=== PATIENT | male | born 1985 | race Caucasian/White ===

== ENCOUNTER 2016-06-04 23:59 | Emergency (ER) | payer OTHER ==
--- NOTE | ~2016-06-04 | CR181 ---
[facility] A Service of [facility] & [facility] RADIOLOGY TEXT RESULTS PATIENT: VERA CHAVIRA LOCATION: [facility] : 83 UNIT #: [id number] AGE: [address]: Tamanna Montoya APRN SEX: M ORDER DR: [id number] [facility] [address] [place], [place] [address] [id number] E MR#: [id number] Acc #: [id number] NAME: VERA CHAVIRA : 1985 SEX: M STUDY DATE/TIME: 06/05/2016 0:15 UNIT: [facility] ROOM: STUDY DESCRIPTION: CR Lumbar Spine 2 or 3 Views Attending Physician: Tamanna Montoya A.P.R.N. Ordering Physician: Tamanna Montoya A.P.R.N. Primary Care Physician: Primary Care Physician No MEDICAL IMAGING REPORT This report is preliminary unless electronic signature is present EXAM Lumbar spine, 06/05/2016 HISTORY 31-year-old male in the ED complaining of 2-week history of low back pain and left leg pain after a reported injury while wrestling. TECHNIQUE Three-view lumbar spine series. FINDINGS The examination is negative. No acute or chronic fracture deformity. Lumbar vertebrae, disc spaces and vertebral alignment are within normal limits. IMPRESSION Negative lumbar spine series. Dictated by... Karsten Sutton M.D. THIS IS AN ELECTRONICALLY VERIFIED REPORT Karsten Sutton M.D. at 06/05/2016 9:58 PM Sheron TD: 06/05/2016 12:05 JOB #: [id number] MEDICAL IMAGING REPORT COPY
[~2016-06-04 23:59] MED LIST: ALPRAZOLAM PO; HYDROCODONE-APA1 T30 PO; PENICILLIN PO
== END 2016-06-05 00:50 | disposition home or self-care (01) ==
LOC: CFTX 23:59
DX: M54.42 Lumbago with sciatica, left side (principal); F17.210 Nicotine dependence, cigarettes, uncomplicated
CPT/HCPCS: 72100; 96372; 99283; J1885

== ENCOUNTER 2016-08-09 12:30 | Emergency (ER) | payer OTHER ==
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
== END 2016-08-09 15:45 | disposition home or self-care (01) ==
LOC: CED 12:30
DX: S06.0X1A Concussion with loss of consciousness of 30 minutes or less, initial encounter (principal); F41.9 Anxiety disorder, unspecified; F32.9 Major depressive disorder, single episode, unspecified; F17.210 Nicotine dependence, cigarettes, uncomplicated; W01.198A Fall on same level from slipping, tripping and stumbling with subsequent striking against other object, initial encounter; Y92.009 Unspecified place in unspecified non-institutional (private) residence as the place of occurrence of the external cause
CPT/HCPCS: 70450; 72040; 99284

== ENCOUNTER 2016-08-15 23:44 | Emergency (ER) | payer OTHER ==
--- NOTE | ~2016-08-15 | CT23 ---
[facility] A Service of [facility] & [facility] RADIOLOGY TEXT RESULTS PATIENT: VERA CHAVIRA LOCATION: [facility] : 84 UNIT #: [id number] AGE: [address]: Kristofer Mustafa MD SEX: M ORDER DR: [id number] [place] [id number] [facility]. [place], [place] [address] [id number] E MR#: [id number] Acc #: [id number] NAME: VERA CHAVIRA : 1985 SEX: M STUDY DATE/TIME: 08/16/2016 3:24 UNIT: [facility] ROOM: STUDY DESCRIPTION: CT Angio Neck Attending Physician: Kristofer Mustafa M.D. Ordering Physician: Dagoberto Kwok Aprn MEDICAL IMAGING REPORT This report is preliminary unless electronic signature is present EXAM CTA head and neck HISTORY Refer below. FINDINGS Please refer to the CTA head report on the same date for complete details. Dictated by... Antione Myers M.D. THIS IS AN ELECTRONICALLY VERIFIED REPORT Antione Myers M.D. at 09/15/2016 5:37 PM TEV/pcl TD: 09/11/2016 20:43 JOB #: [id number] MEDICAL IMAGING REPORT Page 1 of 1 COPY
--- NOTE | ~2016-08-15 | CT71 ---
[facility] A Service [facility] RADIOLOGY TEXT RESULTS PATIENT: VERA CHAVIRA LOCATION: [facility] : 84 UNIT #: [id number] AGE: [address]: Kristofer Mustafa MD SEX: M ORDER DR: [id number] [place] [place], [place] [address] [id number] E MR#: [id number] Acc #: [id number] NAME: VERA CHAVIRA. : 1985 SEX: M STUDY DATE/TIME: 08/16/2016 3:13 UNIT: [facility] ROOM: STUDY DESCRIPTION: CT Head Wo Contrast Attending Physician: Kristofer Mustafa M.D. Ordering Physician: Dagoberto Kwok Aprn Primary Care Physician: Primary Care Physician No MEDICAL IMAGING REPORT This report is preliminary unless electronic signature is present EXAM CT head without contrast INDICATION Nausea, vomiting, right-sided head and neck pain after a fall 1 week ago. PROCEDURE Unenhanced CT head. This CT exam was performed with one or more of the following radiation dose reduction techniques: automatic exposure control, adjustment of mA and/or kV according to patient size, and iterative reconstruction. COMPARISON 08/09/2016 FINDINGS No acute hemorrhage, abnormal mass effect, extraaxial collection or hydrocephalus. No depressed calvarial fracture. Paranasal sinuses and mastoid air cells are clear. IMPRESSION No acute intracranial findings. Dictated by... Merritt Gross M.D. THIS IS AN ELECTRONICALLY VERIFIED REPORT Merritt Gross M.D. at 08/16/2016 10:10 PM Yoanna TD: 08/16/2016 09:51 JOB #: [id number] [facility] A Service [facility] RADIOLOGY TEXT RESULTS PATIENT: VERA CHAVIRA LOCATION: [facility] : 84 UNIT #: [id number] AGE: [address]: Kristofer Mustafa MD SEX: M ORDER DR: MEDICAL IMAGING REPORT Page 1 of 1 COPY
--- NOTE | ~2016-08-15 | CT17 ---
[facility] A Service of [facility] RADIOLOGY TEXT RESULTS PATIENT: VERA CHAVIRA LOCATION: [facility] : 84 UNIT #: [id number] AGE: [address]: Kristofer Mustafa MD SEX: M ORDER DR: [id number] [facility] [address] [place], [place] [address] [id number] E MR#: [id number] Acc #: [id number] NAME: VERA CHAVIRA : 1985 SEX: M STUDY DATE/TIME: 08/16/2016 3:24 UNIT: [facility] ROOM: STUDY DESCRIPTION: CT Angio Head Attending Physician: Kristofer Mustafa M.D. Ordering Physician: Dagoberto Kwok Aprn MEDICAL IMAGING REPORT This report is preliminary unless electronic signature is present EXAM Head and neck CT angiogram with contrast, 08/16/2016 TECHNIQUE Axial contrast enhanced head and neck CT angiogram with 3-D reformats. This CT exam was performed with one or more of the following radiation dose reduction techniques: automatic exposure control, adjustment of mA and/or kV according to patient size, and iterative reconstruction. HISTORY Nausea. Vomiting. Right-sided neck pain for 1 week. Study was performed on August 16 and initial wet reading was provided at that time, has been returned to the cue for final dictation. Reason for the lack of final dictation is not provided. FINDINGS There is a bovine-type arch branching pattern without proximal great vessel stenosis. Both cervical common and internal and external carotid and vertebral arteries are widely patent. The carotid bifurcations are normal with no stenosis by NASCET criteria or other criteria. Intracranially, there is no aneurysm or flow-limiting stenosis. There is symmetric vascularity in the anterior, middle and posterior cerebellar distributions, though opacification intracranial circulation is suboptimal. There is no intracranial mass or abnormal enhancement and the dural venous sinuses are normal. The cervical soft tissues are remarkable for some mildly prominent but symmetric-appearing cervical lymph nodes of uncertain significance. IMPRESSION [facility] A Service of [facility] RADIOLOGY TEXT RESULTS PATIENT: VERA CHAVIRA LOCATION: [facility] : 84 UNIT #: [id number] AGE: [address]: Kristofer Mustafa MD SEX: M ORDER DR: 1. Mildly prominent cervical lymphadenopathy but otherwise normal head and neck CT angiogram. No intracranial or extracranial aneurysm or stenosis. There is dental and periodontal disease but incompletely evaluated here. Dictated by... Antione Myers M.D. THIS IS AN ELECTRONICALLY VERIFIED REPORT Antione Myers M.D. at 09/15/2016 5:38 PM TEV/pcl TD: 09/11/2016 20:25 JOB #: [id number] MEDICAL IMAGING REPORT Page 1 of 1 COPY
[2016-08-16 02:20] LABS: BASOPHIL# 0.1 X10e3 (0-0.3); BASOPHIL% 1.3 % (0-2.5); EOSINOPHIL# 0.2 X10e3 (0-0.7); EOSINOPHIL% 2.6 % (0.0-7.0); HEMATOCRIT 43.6 % (38.0-50.0); HEMOGLOBIN 14.4 gm/dL (13.0-16.0); LYMPHOCYTE# 2.7 X10e3 (1.0-3.5); LYMPHOCYTE% 31.9 % (17.0-45.0); MEAN CELL VOLUME 92.8 FL (83-96); MEAN CORPUSCULAR HEMOGLOBIN 30.6 PG (28-34); MEAN PLATELET VOLUME 9.5 FL (6.5-11.5); MONOCYTE# 0.7 X10e3 (0-1.0); MONOCYTE% 8.5 % (3.0-12.0); NEUTROPHIL# 4.7 X10e3 (1.5-7.1); NEUTROPHIL% 55.7 % (40-75); PLATELET COUNT 243 X10e3 (140-420); RED CELL DISTRIBUTION WIDTH 13.4 % (11.0-15.5); WHITE BLOOD COUNT 8.4 X10e3 (4.0-10.5)
[2016-08-16 02:28] LABS: DIFF IND NO
[2016-08-16 02:45] LABS: ALBUMIN SERUM 4.5 g/dL (3.5-5.0); ALCOHOL BLOOD <5 mg/dL (0); ALKALINE PHOSPHATASE 74 U/L (32-92); ALT (SGPT) 14 U/L (10-40); AST (SGOT) 18 U/L (10-42); BILIRUBIN, DIRECT 0.1 mg/dL (0.0-0.2); BILIRUBIN,INDIRECT 0.5 mg/dL (0.0-0.9); BILIRUBIN,TOTAL 0.6 mg/dL (0.2-2.0); BLOOD UREA NITROGEN 9 mg/dL (9-23); BUN/CREATININE RATIO 11.25; CALCIUM SERUM 9.1 mg/dL (8.4-10.2); CARBON DIOXIDE 29 mmol/L (22-31); CHLORIDE 100 mmol/L (100-111); CREATININE SERUM 0.8 mg/dL (0.6-1.4); GLOM FILT RATE Estimated 118.2 mL/min (>60); GLUCOSE FASTING 99 mg/dL (70-110); LIPASE 27 U/L (22-51); POTASSIUM 3.1 mmol/L (3.5-5.1); PROTEIN TOTAL SERUM 7.4 g/dL (6.0-8.3); SODIUM 138 mmol/L (135-145)
== END 2016-08-16 08:28 | disposition home or self-care (01) ==
LOC: CED 23:44
PROVIDERS: Nurse Practitioner Family
DX: F07.81 Postconcussional syndrome (principal); G62.9 Polyneuropathy, unspecified; F17.210 Nicotine dependence, cigarettes, uncomplicated; M75.40 Impingement syndrome of unspecified shoulder; W19.XXXA Unspecified fall, initial encounter; Y92.410 Unspecified street and highway as the place of occurrence of the external cause
CPT/HCPCS: 36415; 70450; 70496; 70498; 80048; 80076; 83690; 85025; 96360; 96361; 99284; G0480; Q9967

== ENCOUNTER 2016-09-09 03:31 | Emergency (ER) | payer OTHER ==
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
== END 2016-09-09 05:20 | disposition home or self-care (01) ==
LOC: CED 03:31
DX: S16.1XXA Strain of muscle, fascia and tendon at neck level, initial encounter (principal); S39.012A Strain of muscle, fascia and tendon of lower back, initial encounter; S29.012A Strain of muscle and tendon of back wall of thorax, initial encounter; F17.210 Nicotine dependence, cigarettes, uncomplicated; Z98.890 Other specified postprocedural states; V43.52XA Car driver injured in collision with other type car in traffic accident, initial encounter
CPT/HCPCS: 72040; 72072; 72100; 96372; 99284; J1885